=== PATIENT | male | born 1975 | race Caucasian/White ===

== ENCOUNTER → 2024-06-28 10:43 | Outpatient (REF) | payer BC, SELFPAY ==
[2024-06-29 11:30] LABS: Hemoglobin 16.1 g/dL (13.0-18.0); Red Blood Cell Count 5.39 10^6/uL (4.70-6.10); White Blood Cell Count 4.9 10^3/uL (4.8-10.8)
[2024-06-29 11:31] LABS: % Basophils 1.2 % (0-2); % Eosinophils 5.5 % (0-6); % Immature Granulocytes 0.2 % (0-0.5); % Lymphocytes 39.6 % (20.5-51.1); % Monocytes 10.5 % (1.7-9.3); Absolute Neutrophils 2.1 10^3/uL (1.4-6.5); Hematocrit 47.7 % (39.0-52.0); Mean Corp Hgb Conc. 33.8 g/dL (33.0-37.0); Mean Corpuscular Hgb 29.9 pg (27.0-31.0); Mean Corpuscular Volume 88.5 fL (80.0-94.0); Mean Platelet Volume 10.3 fL (7.4-10.4); Platelet Count 212 10^3/uL (130-400); Red Cell Dist. Width 12.2 % (11.5-14.5)
[2024-06-29 11:32] LABS: Absolute Basophils 0.1 10^3/uL (0-0.2); Absolute Eosinophils 0.3 10^3/uL (0-0.7); Absolute Lymphocytes 1.9 10^3/uL (1.2-3.4); Absolute Monocytes 0.5 10^3/uL (0.1-0.6); Nucleated Red Blood Cells % 0 % (-)
[2024-06-29 11:33] LABS: PSA, Total - Screen 1.39 ng/ml (0.0-4.0); TSH 2.57 uIU/ml (0.47-4.68)
[2024-06-29 11:35] LABS: Blood Urea Nitrogen 18 mg/dl (9-20); Glucose 101 mg/dl (70-99); Sodium 139 mmol/L (135-145); eGFR > 60.00
[2024-06-29 11:37] LABS: Albumin 4.7 g/dl (3.5-5.0); Alkaline Phosphatase 65 U/L (38-126); Calcium 9.5 mg/dl (8.4-10.2); Carbon Dioxide 25 mmol/L (22-30); Chloride 103 mmol/L (98-107); Potassium 4.4 mmol/L (3.5-5.1); Total Protein 7.7 g/dl (6.3-8.2)
[2024-06-29 11:38] LABS: ALT (SGPT) 42 U/L (0-50); AST (SGOT) 39 U/L (17-59); HDL Cholesterol 63 mg/dl; Total Bilirubin 2.1 mg/dl (0.2-1.3); Triglyceride 128 mg/dl (10-149); Very Low Density Lipoprotein 25 mg/dl (0-30)
[2024-06-29 11:39] LABS: LDL Cholesterol, Calculated 130 mg/dl; Total Cholesterol 218 mg/dl (50-199)
== END ==
LOC: CLAB 10:43
PROVIDERS: ATTENDING PHYSICIAN Physician Assistant Medical
DX: Z00.00 Encounter for general adult medical examination without abnormal findings (principal); Z68.27 Body mass index [BMI] 27.0-27.9, adult; Z13.39 Encounter for screening examination for other mental health and behavioral disorders; L64.9 Androgenic alopecia, unspecified; Z86.010 Personal history of colon polyps
CPT/HCPCS: 36415; 80053; 80061; 84443; 85025; G0103

== ENCOUNTER → 2024-11-01 11:56 | Outpatient (REF) | payer BC, SELFPAY ==
[2024-11-01 13:02] LABS: ALT (SGPT) 43 U/L (0-50); AST (SGOT) 36 U/L (17-59); Albumin 4.8 g/dl (3.5-5.0); Alkaline Phosphatase 68 U/L (38-126); Blood Urea Nitrogen 19 mg/dl (9-20); Calcium 9.4 mg/dl (8.4-10.2); Carbon Dioxide 25 mmol/L (22-30); Chloride 103 mmol/L (98-107); Glucose 101 mg/dl (70-99); HDL Cholesterol 58 mg/dl; LDL Cholesterol, Calculated 104 mg/dl; Potassium 4.5 mmol/L (3.5-5.1); Sodium 138 mmol/L (135-145); Total Bilirubin 1.7 mg/dl (0.2-1.3); Total Cholesterol 191 mg/dl (50-199); Total Protein 7.6 g/dl (6.3-8.2); Triglyceride 148 mg/dl (10-149); Very Low Density Lipoprotein 29 mg/dl (0-30); eGFR > 60.00
== END ==
LOC: CLAB 11:56
PROVIDERS: ATTENDING PHYSICIAN Physician Assistant Medical
DX: E78.5 Hyperlipidemia, unspecified (principal); R73.9 Hyperglycemia, unspecified
CPT/HCPCS: 80053; 80061